=== PATIENT | female | born 1970 | race Caucasian/White ===

== ENCOUNTER 2018-11-22 17:30 | Emergency (ER) | payer MEDICAID ==
[~2018-11-22] VITALS: Ht 165.1 cm; Wt 58.4 kg
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
[2018-11-22] MEDS ORDERED: ACET-812 PO (18:45)
[2018-11-22] MEDS ORDERED: ibuprofen tablet 400 MG TABLET PO ONE (18:45)
[2018-11-22] MEDS ORDERED: IBUP-1984 PO (18:45)
[2018-11-22 18:53] VITALS: BP 165/99
== END 2018-11-22 19:23 | disposition home or self-care (01) ==
LOC: ER 17:31
DX: M25.561 Pain in right knee (principal); M25.522 Pain in left elbow; R07.89 Other chest pain; Z79.899 Other long term (current) drug therapy; V13.4XXA Pedal cycle driver injured in collision with car, pick-up truck or van in traffic accident, initial encounter; Y93.89 Activity, other specified; Y92.488 Other paved roadways as the place of occurrence of the external cause; Y99.8 Other external cause status
CPT/HCPCS: 73080; 73564; 99284

== ENCOUNTER 2020-01-31 13:55 | Emergency (ER) | payer MEDICAID ==
[~2020-01-31] VITALS: Ht 165.1 cm; Wt 63.6 kg
[~2020-01-31 13:55] MED LIST: ACET-812 PO
[2020-01-31 14:00] VITALS: BP 156/11
[2020-01-31] MEDS ORDERED: ondansetron 4mg rapidly disintigrating tab PO ONE (15:50)
[2020-01-31] MEDS ORDERED: ONDA4TAB6 PO (17:16)
== END 2020-01-31 17:42 | disposition home or self-care (01) ==
LOC: ER 13:55
DX: K29.00 Acute gastritis without bleeding (principal); R11.2 Nausea with vomiting, unspecified; R10.84 Generalized abdominal pain; Z79.899 Other long term (current) drug therapy
CPT/HCPCS: 93005; 99283